=== PATIENT | female | born 1930 | race Caucasian/White ===

== ENCOUNTER 2016-05-23 16:55 | Emergency (ER) | payer OTHER ==
[~2016-05-23] VITALS: Ht 162.6 cm; Wt 55.7 kg
[~2016-05-23 16:55] MED LIST: BENZ100C84 PO; CALCTAB5 PO; CHOL100010 PO; DULO60CA44 PO; FLNIN NAE; MECL25TA2 PO; OMEP40CA PO
[2016-05-23 17:00] VITALS: TEMP 36.8; Ht 162.6 cm; Wt 55.7 kg
[2016-05-23] MEDS ORDERED: OXYCODONE/ACETAMINOPHEN 5-325 TAB PO STA (17:10)
--- NOTE | 2016-05-23 17:30 | EMERGENCY ROOM VISIT NOTE ---
History First contact with patient: 17:06 Chief Complaint: RIB PAIN Stated Complaint: PAIN IN SIDE History of Present Illness The patient is a 85 year old female who presents to the Emergency Room with complaints of pain in her right side. The patient reports that she was taking decorations off of a window earlier today and leaned over a washing machine when she felt a crunch in her right side and developed pain. She rates her discomfort a 10/10. She states the pain is worse with movement. She denies any previous injury to these ribs. She denies any chest pain or difficulty breathing. The patient has not taken any medications for the pain. She denies any abdominal pain, nausea or vomiting. Review of Systems A complete 10-point Review of Systems was discussed with the patient, with pertinent positives and negatives listed in the History of Present Illness. All remaining Review of Systems questions can be considered negative unless otherwise specified. Past Medical/Surgical History Medical Problems: (1) Benign essential hypertension (2) Gastroesophageal reflux disease (3) Hyperlipidemia (4) Hypothyroidism (5) Malignant hypertension (6) Migraine (7) non stemi (8) Polymyalgia rheumatica Surgical Problems: (1) S/P CABG x 3 Family History Diabetes mellitus Social History Smoking Status: Never Smoker Alcohol Use: none Marital Status: Housing Status: unknown Occupation Status: retired Current/Historical Medications Scheduled Aspirin (Aspirin Ec), 81 MG PO DAILY Calcium (Caltrate), 600 MG PO DAILY Cholecalciferol (Vitamin D), 1,000 INTER.UNIT PO DAILY Duloxetine Hcl (Cymbalta), 60 MG PO DAILY Fluticasone Prop/Salmeterol (Advair Diskus 250/50 60 Dose), 1 PUFF INH BID Fluticasone Propionate (Flonase Nasal Sutter), 2 SPRAYS RONNY DAILY Metoprolol Tartrate (Lopressor) (Lopressor), 12.5 MG PO BID Omeprazole (Prilosec), 40 MG PO DAILY Simvastatin (Zocor), 20 MG PO QPM Scheduled PRN Acetaminophen (Tylenol), 325 MG PO Q4H PRN for Headache or Pain Benzonatate (Tessalon Perles), 100 MG PO Q8 PRN for Cough Hjtraoyovn-Smhfuejjekgba-Aazgg (Fioricet), 1 TABLET PO DAILY PRN for PRN Meclizine Hcl (Antivert), 25 MG PO TID PRN for Dizziness or Vertigo Nitroglycerin (Nitrostat), 0.4 MG UT UD PRN for Chest Pain Oxycodone Ir (Roxicodone Ir), 5 MG PO Q4H PRN for Pain Oxycodone Ir (Roxicodone Ir), 1-2 TAB PO Q4H PRN for Pain Tolterodine Tartrate (Detrol La), 4 MG PO DAILY PRN for PRN Allergies Coded Allergies: Clarithromycin (Verified Allergy, Unknown, 08/15/14) Doxycycline (Verified Allergy, Unknown, UNKNOWN, 08/15/14) Macrolides (Verified Allergy, Unknown, 08/15/14) Morphine (Verified Allergy, Unknown, UNKNOWN, 08/15/14) Tolerates oxycodone Nabumetone (Verified Allergy, Unknown, 08/15/14) Propoxyphene (Verified Allergy, Unknown, 08/15/14) Quinolones (Verified Allergy, Unknown, LEVAQUIN, 08/15/14) Tetracycline (Verified Allergy, Unknown, UNKNOWN, 08/15/14) Tetracyclines (Verified Allergy, Unknown, 08/15/14) Ibandronic Acid (Verified Adverse Reaction, Intermediate, BONE PAIN, ) Physical Exam Vital Signs Date Time Temp Pulse Resp B/P Pulse Ox O2 Delivery O2 Flow Rate FiO2 05/23/16 18:38 70 12 156/80 97 Room Air 05/23/16 17:00 36.8 78 18 164/70 92 Room Air Physical Exam VITALS: Vitals are noted on the nurse's note and reviewed by myself. Vital signs stable. GENERAL: This is an 85-year-old female, in no acute distress, nondiaphoretic, well-developed well-nourished. SKIN: Capillary reflex less than 2 seconds. HEENT: Normocephalic. PERRLA. EOMI. Nares patent. Mucous membranes moist. Neck is supple without nuchal rigidity. HEART: Regular rate and rhythm without murmurs gallops or rubs. LUNGS: Clear to auscultation bilaterally without wheezes, rales or rhonchi. No retractions or accessory muscle use. ABDOMEN: Soft, nontender. MUSCULOSKELETAL: There is tenderness to palpation over the right lateral lower ribs. No fracture crepitus present. NEURO: Patient was alert and oriented to person place and time. Medical Decision & Procedures ER Provider Diagnostic Interpretation: RIGHT RIBS UNILATERAL WITH PA CHEST FINDINGS: There are postsurgical changes of midline sternotomy. There is a retrocardiac mass containing air consistent with a hiatal hernia. There is a persistent triangular opacity at the level of the right lower heart border. There is no pneumothorax. No right-sided rib fractures are visualized. There is calcific tendinitis involving the right shoulder. IMPRESSION: 1. No evidence of pneumothorax. No right-sided rib fractures identified. 2. Calcific tendinitis involving the right shoulder Medications Administered Medications (Trade) Dose Ordered Sig/Karen Route Start Time Stop Time Status Last Admin Dose Admin Oxycodone/ Acetaminophen (Percocet 5-325MG Tab) 1 tab NOW STAT PO 05/23/16 17:10 05/23/16 17:11 DC 05/23/16 17:45 1 TAB Medical Decision Differential diagnosis includes rib fracture, rib contusion, muscular strain, pneumothorax, among others. The patient was evaluated as above. She was given 1 tablet of Percocet for pain. X-ray of the chest with right rib detail showed no evidence of rib fracture or pneumothorax. The patient did have an injury consistent with a muscle strain. She will be given a short course of pain medication at home. The patient has received prescriptions for Percocet in the past and states that she does well with it. She was given an incentive spirometer and conservative measures were discussed. She will follow-up with her primary care provider as needed. She and her family verbalized understanding of my assessment and treatment plan and were discharged home in good condition. The patient was independently evaluated by Dr. Nicholas, ED attending physician, who agreed with my assessment and treatment plan. Impression Primary Impression: Rib pain on right side Departure Information Dispostion Home / Self-Care Condition GOOD Prescriptions Oxycodone Ir (Roxicodone Ir) 5 Mg Tab 1-2 TAB PO Q4H Y for Pain, #15 TAB For Initial Treatment Prov: Mago Mcnair .ESVIN 05/23/16 Referrals Bubba Simmons M.D. (PCP) Patient Instructions A Signature Page, My [facility] Additional Instructions You have been treated in the Emergency Department for Rib injury. You have received pain medicine in the emergency department which impairs your ability to operate a vehicle. It is illegal for you to drive after receiving these medicines. You have been prescribed OxyIR to be used for pain control. This is a narcotic medication. You cannot drive or consume alcohol while on this medicine. This medicine should only be used for pain that cannot be controlled with over-the- counter pain medicines. For pain control, you can use the following rxqg-uqa-hlidzaz medicines (if >12 yo): - Regular strength (325mg/tab) Tylenol (acetaminophen) 2 tabs every 4-6 hours as needed. Do not exceed 12 tablets in a 24 hour period. Avoid taking more than 4 grams (4000 mg) of Tylenol per day. This includes any other sources of acetaminophen you may take on a regular basis. - Regular strength (200 mg/tab) Advil (ibuprofen) 1-2 tabs every 4-6 hours as needed. Do not exceed a dose of 3200 mg per day. If this is an acute injury, ice can be applied to the area of pain for the first 3 days to help decrease pain and inflammation. After the first 3 days, a heating pad can be used over the area for continued soothing relief. To minimize your discomfort, you can hug a pillow while coughing or sneezing. Use the incentive spirometer as directed. You should schedule a follow-up appointment in 2-3 days with your Primary Care Provider for further evaluation and treatment of your back pain. Return to the Emergency Department if your current symptoms worsen despite treatment course outlined above, or if you develop any of the following symptoms : intractable pain despite aforementioned treatment course, development of a wet cough, bloody cough, fever, chills, or increased shortness of breath.
--- NOTE | 2016-05-23 17:49 | DIAGNOSTIC IMAGING REPORT ---
RIGHT RIBS UNILATERAL WITH PA CHEST CLINICAL HISTORY: Right rib pain status post trauma COMPARISON STUDY: Chest x-ray dated 11/20/2013 FINDINGS: There are postsurgical changes of midline sternotomy. There is a retrocardiac mass containing air consistent with a hiatal hernia. There is a persistent triangular opacity at the level of the right lower heart border. There is no pneumothorax. No right-sided rib fractures are visualized. There is calcific tendinitis involving the right shoulder. IMPRESSION: 1. No evidence of pneumothorax. No right-sided rib fractures identified. 2. Calcific tendinitis involving the right shoulder Electronically signed by: Joseph Mclean M.D. 05/23/2016 5:47 PM Dictated Date/Time: 05/23/2016 5:45 PM
--- NOTE | 2016-05-23 18:23 | EMERGENCY ROOM VISIT NOTE ---
ED Visit Note First contact with patient: 17:06 I did evaluate and examine this patient myself. I did guide management for the patient. I agree with the PA's assessment as discussed. Please see the PAs dictation for further details. The patient suffered a mechanical fall. I did independently review the x-rays. There is no evidence of pneumothorax or rib fracture.
[2016-05-23 18:38] VITALS: BP 156/80; PULSE 70; O2SAT 97
[2016-05-23] MEDS ORDERED: OXYC1TAB3 PO (18:41)
[2016-12-02] MEDS ORDERED: METO25TA56 PO (12:21)
[2016-12-02] MEDS ORDERED: SIMV20TA2 PO (12:21)
[2016-12-02] MEDS ORDERED: NTRGSL/4 UT (15:22)
[2016-12-02] MEDS ORDERED: BUTA1CAP17 PO (16:17)
[2016-12-02] MEDS ORDERED: OXYC1TAB3 PO (16:17)
[2016-12-02] MEDS ORDERED: ACET-1311 PO (17:22)
== END 2016-05-23 18:55 | disposition home or self-care (01) ==
LOC: C.EDB 16:57 → C.EDD 18:55
DX: R07.81 Pleurodynia (principal); K21.9 Gastro-esophageal reflux disease without esophagitis; E03.9 Hypothyroidism, unspecified; M75.31 Calcific tendinitis of right shoulder; E78.5 Hyperlipidemia, unspecified; Z95.1 Presence of aortocoronary bypass graft; I10 Essential (primary) hypertension; Z79.82 Long term (current) use of aspirin

== ENCOUNTER → 2016-07-24 | Outpatient (CLI) | payer OTHER ==
[~2016-07-24] MED LIST changes: +ACET-1311 PO; +ADVIN25/60 INH; +ASPI81TA28 PO; +BUTA1CAP17 PO; +CALC-393 PO; +CHOL100027 PO; +DOCU-94 PO; +FLUT0.15 NAE; +MECL1TAB42 PO; +METO25TA56 PO; +NTRGSL/4 UT; +OMEP40CA41 PO; +OXYC-57 PO; +OXYC1TAB3 PO; +SIMV20TA2 PO; +TOLT4CAP PO
[2016-07-24 10:11] LABS: HEMATOCRIT 34.5 % (37-47); MEAN CORPUSCULAR HEMOGLOBIN 30.1 pg (25-34); MEAN CORPUSCULAR HGB CONC 34.2 g/dl (32-36); MEAN PLATELET VOLUME 9.6 fL (7.4-10.4); PLATELET COUNT 301 K/uL (130-400); RED BLOOD COUNT 3.92 M/uL (4.2-5.4); WHITE BLOOD COUNT 7.96 K/uL (4.8-10.8)
[2016-07-24 11:17] LABS: BLOOD UREA NITROGEN 23 mg/dl (7-18); GLUCOSE 93 mg/dl (70-99)
[2016-07-24 11:18] LABS: ALKALINE PHOSPHATASE 86 U/L (45-117); ALT/SGPT 16 U/L (12-78); AMYLASE 34 U/L (25-115); AST/SGOT 15 U/L (15-37); BUN/CREATININE RATIO 16.1 (10-20); CALCIUM 9.3 mg/dl (8.5-10.1); CARBON DIOXIDE 25 mmol/L (21-32); CHLORIDE 107 mmol/L (98-107); POTASSIUM 4.1 mmol/L (3.5-5.1); SODIUM 141 mmol/L (136-145)
--- NOTE | 2016-07-24 11:58 | DIAGNOSTIC IMAGING REPORT ---
GI W/AIR SMALL BOWEL ROUTINE CLINICAL HISTORY: R11.0 [id number]. Pain. COMPARISON STUDY: None FLUOROSCOPY TIME: 4 minutes. FINDINGS: Patient initiated swallow function well. Mild esophageal irritability. Fixed lateral hernia. Mild gastroesophageal reflux. Size and configuration stomach are normal. Duodenal bulb fills well and is negative for ulceration. Duodenal sweep is unremarkable. Mucosal pattern and transit time throughout small bowel are unremarkable. Spot films the terminal ileum are within normal limits. IMPRESSION: 1. Mild esophageal irritability. 2. Hiatal hernia with mild gastroesophageal reflux. 3. Otherwise negative study Electronically signed by: Mikey Gant M.D. 07/24/2016 11:57 AM Dictated Date/Time: 07/24/2016 11:53 AM
== END | disposition home or self-care (01) ==
LOC: C.RAD 09:32
PROVIDERS: ATTEND Internal Medicine
DX: R11.0 Nausea (principal); D64.9 Anemia, unspecified; K44.9 Diaphragmatic hernia without obstruction or gangrene; K21.9 Gastro-esophageal reflux disease without esophagitis

== ENCOUNTER → 2016-09-02 | Outpatient (CLI) | payer OTHER ==
--- NOTE | 2016-09-02 09:35 | DIAGNOSTIC IMAGING REPORT ---
ABDOMINAL ULTRASOUND, RIGHT UPPER QUADRANT HISTORY: R11.0 Nausea. COMPARISON: Abdomen and pelvis CT 05/12/2013. FINDINGS: Pancreas: The visualized pancreas demonstrates a normal echotexture. Liver: Unremarkable. Gallbladder: No gallbladder wall thickening. No gallstones. Small amount of sludge. Negative sonographic Gunn's sign. CBD: 6 mm. Right kidney: No hydronephrosis. IMPRESSION: Small amount of gallbladder sludge. No gallstones or gallbladder wall thickening. Electronically signed by: Omid Mcleod M.D. 09/02/2016 9:33 AM Dictated Date/Time: 09/02/2016 9:31 AM
== END | disposition home or self-care (01) ==
LOC: C.ULTR 08:50
PROVIDERS: ATTEND Physician Assistant
DX: R11.0 Nausea (principal)

== ENCOUNTER → 2016-09-04 | Outpatient (CLI) | payer OTHER ==
--- NOTE | 2016-09-04 13:44 | DIAGNOSTIC IMAGING REPORT ---
NUCLEAR GASTRIC EMPTYING STUDY: CLINICAL HISTORY: Nausea COMPARISON STUDY: 09/02/2012 TECHNIQUE: Following the oral administration of 1.1 mCi of technetium 99m sulfur colloid in egg sandwich and 8 ounces of water, static abdominal images are performed anteriorly and posteriorly at 0 minutes, 1 hour, 2 hours, and 4 hour time intervals. Gastric emptying was calculated utilizing the geometric mean method. FINDINGS: There is approximately 62 % gastric activity remaining at the 1 hour time interval, 24 % at the 2 hour time interval (normal is less than 60%), and 2 % remaining at the 4 hour time interval (normal is less than 10%). These findings are consistent with a normal study. IMPRESSION: The previously abnormal study has reverted to normal. Electronically signed by: Joseph Mclean M.D. 09/04/2016 1:42 PM Dictated Date/Time: 09/04/2016 1:41 PM
== END | disposition home or self-care (01) ==
LOC: C.NUCL 08:30
PROVIDERS: ATTEND Physician Assistant
DX: R11.0 Nausea (principal)

== ENCOUNTER → 2016-09-13 | Outpatient (CLI) | payer OTHER ==
[~2016-09-13] MED LIST changes: +SINCALIDE INJ 1.1 MCG in SODIUM CHLORIDE 0.9% 100ML 100 ML IV ONE
--- NOTE | 2016-09-13 15:14 | DIAGNOSTIC IMAGING REPORT ---
NUCLEAR MEDICINE HEPATOBILIARY SCAN WITH EJECTION FRACTION HISTORY: R93.8 Abnormal [id number] Sludge in gallbladder COMPARISON: Abdominal ultrasound 09/02/2016. TECHNIQUE: Immediately following the intravenous administration of 5.5 mCi Tc-99m Choletec, dynamic anterior abdominal imaging pre/post 1.1 mcg of Kinevac was performed. FINDINGS: Uniform hepatic tracer accumulation is shown. Prompt intrahepatic biliary excretion is seen. The gallbladder and common bile duct were visualized by 25 minutes. The small bowel is slightly delayed and visualized at 72 minutes. The gall bladder ejection fraction following administration of Kinevac was 76% (normal >35%). IMPRESSION: 1. No evidence for cystic duct obstruction. 2. Gallbladder ejection fraction calculated to be 76 %. Electronically signed by: Omid Mcleod M.D. 09/13/2016 3:12 PM Dictated Date/Time: 09/13/2016 3:11 PM
== END ==
LOC: C.NUCL 12:29
PROVIDERS: ATTEND Registered Nurse
DX: K82.8 Other specified diseases of gallbladder (principal); R93.8 Abnormal findings on diagnostic imaging of other specified body structures

== ENCOUNTER → 2016-11-12 | Outpatient (CLI) | payer OTHER ==
[~2016-11-12] MED LIST changes: -CALC-393 PO; -CHOL100027 PO; -DOCU-94 PO; -FLUT0.15 NAE; -MECL1TAB42 PO; -OMEP40CA41 PO; -OXYC-57 PO; -SINCALIDE INJ 1.1 MCG in SODIUM CHLORIDE 0.9% 100ML 100 ML IV ONE
--- NOTE | 2016-11-12 14:29 | DIAGNOSTIC IMAGING REPORT ---
RIGHT SHOULDER MIN 2 VIEWS CLINICAL HISTORY: Right shoulder pain. COMPARISON: None FINDINGS: Alignment of the right shoulder is anatomic. There is no acute fracture. There is mild arthritis of the right acromioclavicular and glenohumeral joints. Median sternotomy wires are noted. IMPRESSION: 1. No acute fracture. 2. Mild arthritis of the right acromioclavicular and glenohumeral joints. Electronically signed by: Jacinto Sykes M.D. 11/12/2016 2:27 PM Dictated Date/Time: 11/12/2016 2:25 PM
== END | disposition home or self-care (01) ==
LOC: C.RDSM 14:00
PROVIDERS: ATTEND Family Medicine
DX: M25.511 Pain in right shoulder (principal)

== ENCOUNTER → 2016-11-27 | Outpatient (CLI) | payer OTHER ==
[~2016-11-27] MED LIST changes: +CALC-393 PO; +CHOL100027 PO; +DOCU-94 PO; +FLUT0.15 NAE; +MECL1TAB42 PO; +OMEP40CA41 PO; +OXYC-57 PO
--- NOTE | 2016-11-27 17:40 | DIAGNOSTIC IMAGING REPORT ---
CERVICAL SPINE 4 OR 5 VIEWS CLINICAL HISTORY: 86 years-old Female presenting with NECK PAIN RADIATING INTO RIGHT ARM. TECHNIQUE: Frontal, lateral, bilateral oblique, and open-mouth odontoid views of the cervical spine were obtained. COMPARISON: None. FINDINGS: Lordotic curvature of the upper cervical spine from C2 to C4. 4 mm of retrolisthesis of C2 on C3 with mild apparent spinal canal narrowing. 5 mm of anterolisthesis of C4 on C5 with resultant mild kyphosis of C5-T1. Mild vertebral body height loss of C5 and C6. Multilevel degenerative changes greatest at C5-C7, where there is intervertebral disc height loss and osteophytosis. Significant osseous neural foraminal narrowing in the upper cervical spine greater on the right from C2-3 to C4-5. Normal predental interval. No evidence of acute fracture. The lateral masses of C1 are not well visualized. No prevertebral soft tissue swelling. Median sternotomy wires and other surgical material project over the upper thorax. IMPRESSION: 1. Mild apparent osseous spinal canal narrowing at C2 secondary to retrolisthesis of C2 on C3. 2. Right greater than left upper cervical osseous neural foraminal narrowing. 3. Additional multilevel degenerative changes as above. Electronically signed by: Dev Robles M.D. 11/27/2016 5:38 PM Dictated Date/Time: 11/27/2016 5:32 PM
== END | disposition home or self-care (01) ==
LOC: C.RDSM 13:29
PROVIDERS: ATTEND Family Medicine
DX: M79.601 Pain in right arm (principal); M54.2 Cervicalgia

== ENCOUNTER 2016-12-02 18:14 | Emergency (ER) | payer OTHER ==
[~2016-12-02] VITALS: Ht 162.6 cm; Wt 56.0 kg
[~2016-12-02 18:14] MED LIST changes: -ADVIN25/60 INH; -ASPI81TA28 PO; -CALC-393 PO; -CHOL100027 PO; -DOCU-94 PO; -FLUT0.15 NAE; -MECL1TAB42 PO; -OMEP40CA41 PO; -OXYC-57 PO; -TOLT4CAP PO
[2016-12-02 18:17] VITALS: TEMP 36.8; Ht 162.6 cm; Wt 56.0 kg
[2016-12-02] MEDS ORDERED: ADVIN25/60 INH (18:25)
[2016-12-02] MEDS ORDERED: ASPI81TA28 PO (18:25)
[2016-12-02] MEDS ORDERED: TOLT4CAP PO (18:38)
[2016-12-02] MEDS ORDERED: OXYCODONE/ACETAMINOPHEN 5-325 TAB PO ONE (18:45)
[2016-12-02] MEDS ORDERED: DOCUSATE SODIUM 100 MG CAP PO ONE (18:45)
[2016-12-02] MEDS ORDERED: CALC-393 PO (19:13)
[2016-12-02] MEDS ORDERED: FLUT0.15 NAE (19:13)
[2016-12-02] MEDS ORDERED: MECL1TAB42 PO (19:13)
[2016-12-02] MEDS ORDERED: OMEP40CA41 PO (19:13)
[2016-12-02] MEDS ORDERED: CHOL100027 PO (19:13)
[2016-12-02] MEDS ORDERED: DOCU-94 PO (19:51)
[2016-12-02] MEDS ORDERED: OXYC-57 PO (19:51)
--- NOTE | 2016-12-02 19:52 | EMERGENCY ROOM VISIT NOTE ---
History Report prepared by Lili: Kristi Perea Under the Supervision of: Dr. Varghese Gallagher M.D. First contact with patient: 18:25 Chief Complaint: SHOULDER PAIN Stated Complaint: PAIN IN R SHOULDER AND GOES DOWN History of Present Illness The patient is a 86 year old female who presents to the Emergency Room with complaints of right shoulder pain starting about a month ago and worsening yesterday. She has worsening pain with movement. The patient has been taking Oxycodone with some relief. She has been applying ice without relief. She has been receiving physical therapy without relief. She had an x-ray which showed arthritis, spurs, and spinal stenosis. She is scheduled to have a CT scan of brain and MRI scheduled for December 05. She was referred to the Emergency Room for concerns about the severity of her pain. She denies any recent falls or history of shoulder issues. The patient denies chest pain, shortness of breath, or any other complaints. Source of History: patient Onset: about a month ago Position: shoulder (right) Timing: worsening Modifying Factors (Worsening): movement Modifying Factors (Relieving): ice (without relief), other (Oxycodone with some relief; phyisical therapy without relief) Associated Symptoms: No chest pain, No SOB Review of Systems All systems have been listed, reviewed, and are negative other than those previously mentioned. Please see Additional Medical History Sheet. Past Medical & Surgical Medical Problems: (1) Benign essential hypertension (2) Gastroesophageal reflux disease (3) Hyperlipidemia (4) Hypothyroidism (5) Malignant hypertension (6) Migraine (7) non stemi (8) Polymyalgia rheumatica Surgical Problems: (1) S/P CABG x 3 Family History Diabetes mellitus Social History Smoking Status: Never Smoker Alcohol Use: none Marital Status: Housing Status: unknown Occupation Status: retired Current/Historical Medications Scheduled Aspirin (Aspirin Ec), 81 MG PO DAILY Calcium Carbonate (Calcium), 600 MG PO DAILY Cholecalciferol (Vitamin D 1000 Unit), 1,000 INTER.UNIT PO DAILY Docusate Sodium (Colace), 100 MG PO BID Fluticasone Prop/Salmeterol (Advair Diskus 250/50 60 Dose), 1 PUFF INH BID Fluticasone Propionate (Nasal) (Flonase Allergy Relief), 2 SPRAYS RONNY DAILY Metoprolol Tartrate (Lopressor) (Lopressor), 12.5 MG PO BID Omeprazole (Prilosec), 40 MG PO DAILY Simvastatin (Zocor), 20 MG PO QPM Scheduled PRN Acetaminophen (Tylenol), 325 MG PO Q4H PRN for Headache or Pain Hbtgmcutmt-Whrguyclzlnei-Lxnws (Fioricet), 1 TABLET PO DAILY PRN for PRN Duloxetine Hcl (Cymbalta), 60 MG PO DAILY PRN for DEPRESSION Meclizine Hcl (Meclizine Hcl), 1 TAB PO TID PRN for Dizziness or Vertigo Nitroglycerin (Nitrostat), 0.4 MG UT UD PRN for Chest Pain Oxycodone Ir (Roxicodone Ir), 5 MG PO Q4H PRN for Pain Oxycodone/Acetaminophen 5MG/325MG (Percocet 5MG/325MG), 1 TABLETS PO Q4H PRN for Pain Tolterodine Tartrate (Detrol La), 4 MG PO DAILY PRN for PRN Allergies Coded Allergies: Clarithromycin (Verified Allergy, Unknown, 08/15/14) Doxycycline (Verified Allergy, Unknown, UNKNOWN, 08/15/14) Macrolides (Verified Allergy, Unknown, 08/15/14) Morphine (Verified Allergy, Unknown, UNKNOWN, 08/15/14) Tolerates oxycodone Nabumetone (Verified Allergy, Unknown, 08/15/14) Propoxyphene (Verified Allergy, Unknown, 08/15/14) Quinolones (Verified Allergy, Unknown, LEVAQUIN, 08/15/14) Tetracycline (Verified Allergy, Unknown, UNKNOWN, 08/15/14) Tetracyclines (Verified Allergy, Unknown, 08/15/14) Ibandronic Acid (Verified Adverse Reaction, Intermediate, BONE PAIN, ) Physical Exam Vital Signs Date Time Temp Pulse Resp B/P (MAP) Pulse Ox O2 Delivery O2 Flow Rate FiO2 12/02/16 18:17 36.8 82 22 123/56 96 Room Air Physical Exam GENERAL: Patient awake, alert, oriented x 3. Patient follows commands. Patient does not appear toxic. Patient is adequately hydrated and well- nourished. SKIN: No erythema, pallor, cyanosis or rash HEENT: Normal head, pupils equal, reactive to light and accommodation. LUNGS: Clear to auscultation. No wheezes, no rales, no rhonchi. HEART: Grade 2/6 systolic murmur. ABDOMEN: Soft, nontender. EXTREMITIES: No signs of trauma. No pedal or pretibial edema. No calf or thigh tenderness. Some limited range of motion with abduction. Normal flexion and extension. NEUROLOGIC: Cranial nerves II-XII within normal limits. No gross motor sensory function deficits. Medical Decision & Procedures Medications Administered Medications (Trade) Dose Ordered Sig/Karen Route Start Time Stop Time Status Last Admin Dose Admin Oxycodone/ Acetaminophen (Percocet 5-325mg Tab) 1 tab NOW ONCE PO 12/02/16 18:45 12/02/16 18:46 DC 12/02/16 18:54 1 TAB Docusate Sodium (coLACE CAP) 100 mg NOW ONCE PO 12/02/16 18:45 12/02/16 18:46 DC 12/02/16 18:54 100 MG ED Course 1824: Past medical records reviewed. The patient was evaluated in room C10. A complete history and physical examination was performed. 1844: Colace Cap 100 mg PO, Oxycodone/Acetaminophen 1 tab PO 1943: Upon reevaluation, the patient appeared to have improvement of her symptoms. I discussed today's findings with her. She verbalized agreement of the treatment plan. She was discharged home. Medical Decision Medication Reconciliation: I attest that I have personally reviewed the patient' s current medication list. Blood pressure Screening: Patient was found to have normal blood pressure on screening and does not require follow up. Differential diagnosis includes but is not limited to bursitis, arthritis, rotator cuff injury. The patient is here with right shoulder pain for the past couple of months but worse over the past 2 days. The patient denies any recent injury. The patient does have some limited abduction. The patient has a prior history of arthritis. Pain appears to be isolated to her shoulder. I do not believe this is related to any underlying medical problem. The patient is scheduled to have an MRI of her shoulder this week. She was given 1 Percocet here which helped considerably. The patient does not tolerate NSAIDs. The patient continued taking Percocet at home as needed. [place] Drug Monitoring Program Search Results: patient reviewed within database, no issues identified Impression Primary Impression: Arthritis of right shoulder region Scribe Attestation The scribe's documentation has been prepared under my direction and personally reviewed by me in its entirety. I confirm that the note above accurately reflects all work, treatment, procedures, and medical decision making performed by me. Departure Information Dispostion Home / Self-Care Prescriptions Docusate Sodium (COLACE) 100 Mg Cap 100 MG PO BID, #30 CAP Prov: Varghese Gallagher M.D. 12/02/16 Oxycodone/Acetaminophen 5MG/325MG (PERCOCET 5MG/325MG) Tab 1 TABLETS PO Q4H Y for Pain, #20 TAB Prov: Varghese Gallagher M.D. 12/02/16 Referrals Bubba Simmons M.D. (PCP) Forms HOME CARE DOCUMENTATION FORM, IMPORTANT VISIT INFORMATION Patient Instructions My [facility] Additional Instructions 1 Percocet every 4 hours as needed for pain. 1 Colace twice a day as long as you're taking oxycodone/Percocet. Follow-up with the MRI appointment . Follow-up with your family physician.
[2016-12-02 20:42] VITALS: BP 119/61; PULSE 76; O2SAT 96
--- NOTE | 2016-12-03 13:26 | Pharmacy Progress Note ---
ED Pharmacist Progress Note Date of Service: Dec 03, 2016. Patient's family called stating Rx for Colace was at [facility] however the Percocet Rx was not there. I reviewed the Rx transmission history and discovered the Rx for Percocet had been printed. The Rx was still in the ED and I had Dr Gallagher sign it. I then notified the patient's family the Rx would be available for someone to pick-up at the ED entrance. The Rx was placed in an envelope in the nursing command station with the patient's name on the outside.
== END 2016-12-02 20:43 | disposition home or self-care (01) ==
LOC: C.EDB 18:16 → C.EDC 20:43
DX: M19.011 Primary osteoarthritis, right shoulder (principal); I10 Essential (primary) hypertension; K21.9 Gastro-esophageal reflux disease without esophagitis; E78.5 Hyperlipidemia, unspecified; I25.2 Old myocardial infarction; Z95.1 Presence of aortocoronary bypass graft; Z79.82 Long term (current) use of aspirin; Z83.3 Family history of diabetes mellitus; Z79.899 Other long term (current) drug therapy

== ENCOUNTER → 2016-12-05 | Outpatient (CLI) | payer OTHER ==
[~2016-12-05] MED LIST changes: +ADVIN25/60 INH; +ASPI81TA28 PO; -BENZ100C84 PO; +CALC-393 PO; -CALCTAB5 PO; -CHOL100010 PO; +CHOL100027 PO; +DOCU-94 PO; -FLNIN NAE; +FLUT0.15 NAE; +MECL1TAB42 PO; -MECL25TA2 PO; -OMEP40CA PO; +OMEP40CA41 PO; +OXYC-57 PO; +TOLT4CAP PO
--- NOTE | 2016-12-05 11:15 | DIAGNOSTIC IMAGING REPORT ---
CT HEAD WITHOUT CONTRAST (CT) CLINICAL HISTORY: R ARM WEAKNESS COMPARISON STUDY: 02/22/2014 TECHNIQUE: Axial CT of the brain is performed from the vertex to the skull base. IV contrast was not administered for this examination. A dose lowering technique was utilized adhering to the principles of ALARA. CT DOSE: 788.63 mGycm FINDINGS: No intra or extra-axial mass lesions are visualized. There is no CT evidence of acute cortical infarction. There is no evidence of midline shift. There is no acute hemorrhage. No calvarial fractures are visualized. There are moderate white matter hypodensities likely on a small vessel basis. There is no evidence of pathologic ventricular dilatation. There is chronic mucosal thickening with mild maxilla sinus wall hypertrophy. There is no evidence of acute sinusitis. IMPRESSION: No acute intracranial findings Electronically signed by: Joseph Mclean M.D. 12/05/2016 11:13 AM Dictated Date/Time: 12/05/2016 11:13 AM
--- NOTE | 2016-12-05 12:00 | DIAGNOSTIC IMAGING REPORT ---
CERVICAL WITHOUT CONTRAST CLINICAL HISTORY: 86 years-old Female presenting with R ARM WEAKNESS. TECHNIQUE: Multisequence, multiplanar MR imaging of the cervical spine was performed without the use of intravenous contrast. IV contrast: None. COMPARISON: Plain radiographs of the cervical spine on 11/27/2016. FINDINGS: Extensive multilevel degenerative changes resulting in exaggerated lordosis of C2-C4 and slight kyphosis from C5 to C7. No evidence of retrolisthesis of C2 on C3. Grade 1 anterolisthesis of C4 on C5. Mild vertebral body height loss at C5 and C6. Fluid signal noted within the C3-4 and C5-6 disc spaces without bony edema of the associated endplates. C2-3: Disc osteophyte complex in combination with ligamentum flavum thickening results in near complete effacement of the CSF and apparent impingement of the spinal cord. No significant neural foraminal narrowing. C3-4: Disc osteophyte complex and uncovertebral hypertrophy mildly effaces the ventral thecal sac. No significant neural foraminal narrowing. C4-5: Anterolisthesis of C4 on C5 with small disc osteophyte complex. No significant neural foraminal narrowing. Mild spinal canal stenosis as a result of anterolisthesis, although the dorsal CSF is not effaced. C5-6: Disc osteophyte complex and uncovertebral hypertrophy result in effacement of the ventral thecal sac and mild bilateral neural foraminal narrowing. Spinal cord mildly contoured along the ventral aspect without evidence of impingement. C6-7: Disc osteophyte complex and uncovertebral hypertrophy mildly effaces the ventral thecal sac and lateral recesses. No significant neural foraminal narrowing, although exiting C7 nerve roots may be abutted by the disc osteophyte complex in the lateral recess. C7-T1: Disc osteophyte complex in combination with ligamentum flavum thickening mildly and circumferentially efface the ventral thecal sac. No giselle evidence of spinal cord impingement. No significant neural foraminal narrowing. Craniocervical junction normal. Mild thinning of the cervical spinal cord suggested at C2-3 although no abnormal signal intensity is noted. Paraspinal soft tissues remarkable for asymmetric intramuscular edema and infiltration along the right facet joints extending to the interspinous region from C4-5 to C6-7. The greatest amount of edema is noted at C6-7 with possible bony edema extending into the right C7 pedicle. No fluid within the right C6-7 facet joint. Remaining soft tissues of the neck within normal limits. IMPRESSION: 1. Significant multilevel degenerative change detailed above. Apparent spinal cord impingement at C2-3. Varying degrees of neural foraminal narrowing as above. Possible abutment of the exiting C7 nerve roots secondary to disc osteophyte complex. 2. Asymmetric right-sided paraspinal edema extending from C4-5 to C6-7 with possible bony edema in the right C7 posterior elements. The absence of fluid within the C6-7 right facet joint decreases suspicion for septic arthritis/infection, although the degree of paraspinal inflammatory change is unexpected in the setting of degenerative disease. Correlate clinically to exclude infection. This may represent injury or degenerative change. 3. Fluid signal intensity within the C3-4 and C4-5 disc spaces without adjacent endplate bony edema. This is most likely degenerative in etiology. Electronically signed by: Dev Robles M.D. 12/05/2016 11:59 AM Dictated Date/Time: 12/05/2016 11:43 AM
== END | disposition home or self-care (01) ==
LOC: C.MRI 09:45
PROVIDERS: ATTEND Family Medicine
DX: M79.601 Pain in right arm (principal); R29.898 Other symptoms and signs involving the musculoskeletal system; R20.2 Paresthesia of skin; G95.19 Other vascular myelopathies

== ENCOUNTER → 2016-12-19 | Outpatient (CLI) | payer OTHER ==
[2016-12-19 13:28] LABS: BASO % 0.9 %; BASO ABS # 0.08 K/uL (0-0.2); COMPLETE YES; HEMATOCRIT 34.5 % (37-47); IG% 0.6 %; LYMPH % 28.8 %; LYMPH ABS # 2.58 K/uL (1.2-3.4); MEAN CELL VOLUME 89.1 fL (80-100); MEAN CORPUSCULAR HEMOGLOBIN 28.4 pg (25-34); MEAN CORPUSCULAR HGB CONC 31.9 g/dl (32-36); MEAN PLATELET VOLUME 9.5 fL (7.4-10.4); MONO % 11.6 %; NEUT % 55.1 %; PLATELET COUNT 500 K/uL (130-400); RED BLOOD COUNT 3.87 M/uL (4.2-5.4); WHITE BLOOD COUNT 8.96 K/uL (4.8-10.8)
[2016-12-19 13:46] LABS: BLOOD UREA NITROGEN 22 mg/dl (7-18); CALCIUM 9.1 mg/dl (8.5-10.1); CARBON DIOXIDE 26 mmol/L (21-32); CHLORIDE 108 mmol/L (98-107); GLUCOSE 91 mg/dl (70-99); POTASSIUM 4.4 mmol/L (3.5-5.1); SODIUM 141 mmol/L (136-145)
== END | disposition home or self-care (01) ==
LOC: C.LABBC 10:37
PROVIDERS: ATTEND Internal Medicine Geriatric Medicine
DX: E03.9 Hypothyroidism, unspecified (principal); M35.3 Polymyalgia rheumatica; N18.3 Chronic kidney disease, stage 3 (moderate); M81.0 Age-related osteoporosis without current pathological fracture; D64.9 Anemia, unspecified

== ENCOUNTER → 2017-05-15 | Outpatient (CLI) | payer OTHER ==
--- NOTE | 2017-05-15 13:48 | MAMMOGRAPHY REPORT ---
BILATERAL DIGITAL SCREENING MAMMOGRAM WITH CAD: 05/15/2017 CLINICAL HISTORY: Routine screening. Patient has no complaints. TECHNIQUE: Current study was also evaluated with a Computer Aided Detection (CAD) system. Bilateral CC and MLO views were obtained. COMPARISON: Comparison is made to exams dated: 05/13/2016 mammogram, 05/10/2015 mammogram, 4 mammogram, 05/06/2013 mammogram, 05/03/2011 mammogram, and 05/05/2009 mammogram - [facility]. BREAST COMPOSITION: The tissue of both breasts is heterogeneously dense, which may obscure small mas ses. FINDINGS: No suspicious masses, calcifications, or areas of architectural distortion are noted in ei ther breast. There has been no significant interval change compared to prior exams. Bilateral benign -appearing calcifications are not significantly changed. Asymmetry in the left inferior breast is st able. Nodular asymmetry in the left lateral breast middle depth on the cc view is compatible with a stable intramammary lymph node. IMPRESSION: ACR BI-RADS CATEGORY 2: BENIGN There is no mammographic evidence of malignancy. A 1 year screening mammogram is recommended. The pa tient will receive written notification of the results. Approximately 10% of breast cancers are not detected with mammography. A negative mammographic report should not delay biopsy if a clinically suggestive mass is present. Caitie León M.D. /:05/15/2017 12:25:53 [employer] Operator: Nidia Patel [facility] letter sent: Normal 1/2 BI-RADS Code: ACR BI-RADS Category 2: Benign
== END | disposition home or self-care (01) ==
LOC: C.MAMM 11:05
PROVIDERS: ATTEND Internal Medicine Geriatric Medicine
DX: Z12.31 Encounter for screening mammogram for malignant neoplasm of breast (principal)

== ENCOUNTER → 2017-07-03 | Outpatient (CLI) | payer OTHER ==
[~2017-07-03] MED LIST changes: -DOCU-94 PO; -OXYC-57 PO
[2017-07-03 14:14] LABS: ALBUMIN 3.6 gm/dl (3.4-5.0); ALT/SGPT 14 U/L (12-78); BLOOD UREA NITROGEN 22 mg/dl (7-18); CALCIUM 9.3 mg/dl (8.5-10.1); CARBON DIOXIDE 27 mmol/L (21-32); CHOLESTEROL 163 mg/dl (0-200); CREATININE 1.57 mg/dl (0.60-1.20); GLUCOSE 97 mg/dl (70-99); POTASSIUM 4.2 mmol/L (3.5-5.1); SODIUM 135 mmol/L (136-145)
[2017-07-03 14:24] LABS: ALKALINE PHOSPHATASE 92 U/L (45-117); AST/SGOT 13 U/L (15-37); LDL CHOLESTEROL CALCULATED 87 mg/dl; TOTAL PROTEIN 7.5 gm/dl (6.4-8.2)
[2017-07-03 14:28] LABS: BASO % 0.7 %; BASO ABS # 0.07 K/uL (0-0.2); EOS % 2.8 %; HEMATOCRIT 35.9 % (37-47); IG# 0.03 K/uL (0.00-0.02); LYMPH % 27.4 %; LYMPH ABS # 2.92 K/uL (1.2-3.4); MEAN CORPUSCULAR HEMOGLOBIN 29.4 pg (25-34); MEAN CORPUSCULAR HGB CONC 33.4 g/dl (32-36); MEAN PLATELET VOLUME 9.8 fL (7.4-10.4); MONO ABS # 0.85 K/uL (0.11-0.59); NEUT % 60.8 %; NEUT ABS # 6.48 K/uL (1.4-6.5); PLATELET COUNT 446 K/uL (130-400); RED CELL DISTRIBUTION WIDTH CV 14.5 % (11.5-14.5); RED CELL DISTRIBUTION WIDTH SD 46.6 fL (36.4-46.3); WHITE BLOOD COUNT 10.65 K/uL (4.8-10.8)
== END | disposition home or self-care (01) ==
LOC: C.LABBC 11:29
PROVIDERS: ATTEND Internal Medicine Geriatric Medicine
DX: M35.3 Polymyalgia rheumatica (principal); M19.90 Unspecified osteoarthritis, unspecified site; M81.0 Age-related osteoporosis without current pathological fracture; D64.9 Anemia, unspecified; F32.9 Major depressive disorder, single episode, unspecified; I25.10 Atherosclerotic heart disease of native coronary artery without angina pectoris; N18.3 Chronic kidney disease, stage 3 (moderate); R42 Dizziness and giddiness

== ENCOUNTER → 2017-07-16 | Day surgery (SDC) | payer OTHER ==
[2017-07-11 14:50] VITALS: Ht 157.5 cm; Wt 53.6 kg
[~2017-07-16] VITALS: Ht 157.5 cm; Wt 53.6 kg
[~2017-07-16] MED LIST changes: -ACET-1311 PO; +ACET-1693 PO; +ASPCH81X PO; -ASPI81TA28 PO; +BENZ100C18 PO; -BUTA1CAP17 PO; +CHOL100010 PO; -CHOL100027 PO; +DTRSR4 PO; -FLUT0.15 NAE; +LEVO50TA6 PO; +LIDOCAINE HCL 2% 2 ML VIAL (20MG/ML) ONE; +MIDAZOLAM HCL 1 MG/ML 2ML VIAL ONE; +NITR0.4D6 PO; -NTRGSL/4 UT; +ONDA4TAB46 PO; +ONDANSETRON INJ 2 MG/ML 2 ML VIAL ONE; -OXYC1TAB3 PO; +PROPOFOL IV EMULSION 10 MG/ML 20 ML VIAL IV ONE; +SODIUM CHLORIDE 0.9% 500ML 500 ML IV ONE; -TOLT4CAP PO
--- NOTE | 2017-07-16 09:47 | Endo History and Physical ---
History & Physical Date of Service: Jul 16, 2017. Chief Complaint: GERD Referring Physician: uBbba Simmons History of Present Illness 86 yo CF who presents for EGD secondary to GERD. Past Medical History Osteoporosis, Arthritis, Asthma, High Cholesterol, CABG, Hypertension, Thyroid Disease, Chronic Steroid Use Past Surgical History Hx Cardiac Surgery: Yes (HEART CATH/NO STENTS, CABG X 1) Hx Internal Defibrillator: No Hx Pacemaker: No Hx Abdominal Surgery: Yes (HYSTERECTOMY, , RT INGUINAL HERNIA) Hx of Implantable Prosthesis: No Hx Post-Op Nausea and Vomiting: No Hx Cancer Surgery: No Hx Thoracic Surgery: No Hx Orthopedic: Yes (BACK SURGERY (NO HARDWARE)) Hx Urinary Tract Surgery: Yes (BLADDER SUSPENSION) Family History None Social History Smoking Status: Never Smoker Hx Substance Use: No Hx Alcohol Use: Yes (OCCASIONALLY) Allergies Coded Allergies: Alendronate (Verified Allergy, Unknown, UNKNOWN, 07/11/17) IN MEDICAL RECORD Clarithromycin (Verified Allergy, Unknown, UNKNOWN, 07/11/17) IN MEDICAL RECORD Doxycycline (Verified Allergy, Unknown, UNKNOWN, 07/11/17) IN MEDICAL RECORD Ibandronic Acid (Verified Allergy, Unknown, UNKNOWN, 07/11/17) IN MEDICAL RECORD Levofloxacin (Verified Allergy, Unknown, UNKNOWN, 07/11/17) IN MEDICAL RECORD Nabumetone (Verified Allergy, Unknown, UNKNOWN, 07/11/17) IN MEDICAL RECORD Propoxyphene (Verified Allergy, Unknown, UNKNOWN, 07/11/17) IN MEDICAL RECORD Sulfamethoxazole w/Trimethoprim (Verified Allergy, Unknown, UNKNOWN, ) LISTED ON RECORDS Current Medications Reported Home Medications Medications Dose Route/Sig Max Daily Dose Days Date Category Tylenol (Acetaminophen) 325 Mg Tab 650 Mg PO DIRECTED PRN 07/11/17 Reported Detrol LA (Tolterodine Tartrate) 4 Mg Capcr 1 Cap PO DAILY PRN 07/11/17 Reported Zocor (Simvastatin) 20 Mg Tab 20 Mg PO QPM 07/11/17 Reported Zofran (Ondansetron HCl) 4 Mg Tab 4 Mg PO Q8H PRN 07/11/17 Reported Prilosec (Omeprazole) 40 Mg Cap 40 Mg PO BID PRN 07/11/17 Reported Nitroglycerin 0.4 Mg/Hr Dis 1 Tab PO DIRECTED PRN 07/11/17 Reported Lopressor (Metoprolol Tartrate) 25 Mg Tab 0.5 Tab PO BID 07/11/17 Reported Meclizine Hcl 25 Mg Tab 1 Tab PO TID PRN 10 07/11/17 Reported Levothyroxine Sodium 50 Mcg Tab 1 Tab PO QAM 07/11/17 Reported Cymbalta (Duloxetine Hcl) 60 Mg Cap 60 Mg PO DAILY PRN 07/11/17 Reported Vitamin D (Cholecalciferol) 1,000 Unit Tab 1 Tab PO QAM 07/11/17 Reported Calcium (Calcium Carbonate) 600 Mg Tab 1 Tab PO QAM 07/11/17 Reported Tessalon Perles (Benzonatate) 100 Mg Cap 100 Mg PO DIRECTED PRN 07/11/17 Reported Aspirin Chewable (Aspirin) 81 Mg Chew 81 Mg PO QAM 07/11/17 Reported Vital Signs Weight (Kilograms): 53.64 Height (Feet): 5 Height (Inches): 2 Physical Exam General Appearance: WD/WN, no apparent distress Respiratory/Chest: Auscultation: breath sounds normal Cardiovascular: Heart Auscultation: RRR Abdomen: Bowel Sounds: normal Inspection & Palpation: soft, non-distended, no tenderness, guarding & rebound Assessment and Plan Assessment: 86 yo CF who presents for EGD secondary to GERD. Plan: Proceed with EGD.
--- NOTE | 2017-07-16 10:30 | Discharge Instructions ---
Endoscopy Patient Instructions Date / Procedure(s) Performed Jul 16, 2017. EGD Allergy Information Coded Allergies: Alendronate (Verified Allergy, Unknown, UNKNOWN, 07/16/17) IN MEDICAL RECORD Clarithromycin (Verified Allergy, Unknown, UNKNOWN, 07/16/17) IN MEDICAL RECORD Doxycycline (Verified Allergy, Unknown, UNKNOWN, 07/16/17) IN MEDICAL RECORD Ibandronic Acid (Verified Allergy, Unknown, UNKNOWN, 07/16/17) IN MEDICAL RECORD Levofloxacin (Verified Allergy, Unknown, UNKNOWN, 07/16/17) IN MEDICAL RECORD Nabumetone (Verified Allergy, Unknown, UNKNOWN, 07/16/17) IN MEDICAL RECORD Propoxyphene (Verified Allergy, Unknown, UNKNOWN, 07/16/17) IN MEDICAL RECORD Sulfamethoxazole w/Trimethoprim (Verified Allergy, Unknown, UNKNOWN, ) LISTED ON RECORDS Discharge Date / Findings Jul 16, 2017. Hiatal hernia Medication Instructions OK to resume all medications today as prescribed Reported Home Medications Medications Dose Route/Sig Max Daily Dose Days Date Category Tylenol (Acetaminophen) 325 Mg Tab 650 Mg PO DIRECTED PRN 07/11/17 Reported Detrol LA (Tolterodine Tartrate) 4 Mg Capcr 1 Cap PO DAILY PRN 07/11/17 Reported Zocor (Simvastatin) 20 Mg Tab 20 Mg PO QPM 07/11/17 Reported Zofran (Ondansetron HCl) 4 Mg Tab 4 Mg PO Q8H PRN 07/11/17 Reported Prilosec (Omeprazole) 40 Mg Cap 40 Mg PO BID PRN 07/11/17 Reported Nitroglycerin 0.4 Mg/Hr Dis 1 Tab PO DIRECTED PRN 07/11/17 Reported Lopressor (Metoprolol Tartrate) 25 Mg Tab 0.5 Tab PO BID 07/11/17 Reported Meclizine Hcl 25 Mg Tab 1 Tab PO TID PRN 10 07/11/17 Reported Levothyroxine Sodium 50 Mcg Tab 1 Tab PO QAM 07/11/17 Reported Cymbalta (Duloxetine Hcl) 60 Mg Cap 60 Mg PO DAILY PRN 07/11/17 Reported Vitamin D (Cholecalciferol) 1,000 Unit Tab 1 Tab PO QAM 07/11/17 Reported Calcium (Calcium Carbonate) 600 Mg Tab 1 Tab PO QAM 07/11/17 Reported Tessalon Perles (Benzonatate) 100 Mg Cap 100 Mg PO DIRECTED PRN 07/11/17 Reported Aspirin Chewable (Aspirin) 81 Mg Chew 81 Mg PO QAM 07/11/17 Reported Provider Instructions Activity Restrictions - No exercising or heavy lifting for 24 hours. - Do not drink alcohol the day of the procedure. - Do not drive a car or operate machinery until the day after the procedure. - Do not make any important decisions or sign important papers in 24 hours after the procedure. Following Day: - Return to full activity which may include returning to work/school. Diet Start your diet with liquids and light foods (jello, soup, juice, toast). Then eat your usual diet if not nauseated. Treatment For Common After Affects For mild abdominal pain, bloating, or excessive gas: - Rest - Eat lightly - Lie on right side Follow-Up Information Follow-up with Bubba Simmons as scheduled Anesthesia Information What You Should Know You have had a procedure that required some medicine to reduce anxiety and discomfort. This treatment is called moderate sedation. After receiving the treatment, you may be sleepy, but you will be able to breathe on your own. The effects of the treatment may last for several hours. Follow these instructions along with Activity/Diet recommendations noted above: * Do NOT do anything where dizziness or clumsiness would be dangerous. * Rest quietly at home today, then you can be up and about tomorrow. * Have a responsible person stay with you the rest of today. * You may have had an I.V. today. If so, you may take the dressing off later today. Recommendations Call your doctor if: * Trouble breathing * Continuous vomiting for more than 24 hours * Temperature above 101 degrees * Severe abdominal pain or bloating * Pain not relieved by pain medicine ordered * There is increased drainage or redness from any incision * A large amount of rectal bleeding greater than 2-3 tablespoons. (If you had a polyp/s removed or have hemorrhoids, a small amount of blood - from the rectum is to be expected.) * You have any unanswered questions or concerns. IN THE EVENT OF A SERIOUS EMERGENCY, GO TO THE NEAREST EMERGENCY ROOM Your discharge instructions were prepared by provider Lakhwinder Crespo. Patient Instructions Signature Page Willa Leyva Patient (or Guardian) Signature/Date: I have read and understand the instructions given to me by my caregivers. Caregiver/RN/Doctor Signature/Date: The above-named patient and/or guardian has received patient instructions on this date. + Original Patient Signature Page (only) stays with chart. Please make copy for patient.
--- NOTE | 2017-07-16 10:41 | GI REPORT ---
Procedure Date: 07/16/2017 9:54 AM Procedure: Upper GI endoscopy Indications: Gastro-esophageal reflux disease Medicines: Monitored Anesthesia Care Complications: No immediate complications. Estimated Blood Loss: Estimated blood loss: none. Procedure: Pre-Anesthesia Assessment: - Prior to the procedure, a History and Physical was performed, and patient medications and allergies were reviewed. The patient's tolerance of previous anesthesia was also reviewed. The risks and benefits of the procedure and the sedation options and risks were discussed with the patient. All questions were answered, and informed consent was obtained. Prior Anticoagulants: The patient has taken aspirin, last dose was 1 day prior to procedure. ASA Grade Assessment: III - A patient with severe systemic disease. After reviewing the risks and benefits, the patient was deemed in satisfactory condition to undergo the procedure. After obtaining informed consent, the endoscope was passed under direct vision. Throughout the procedure, the patient's blood pressure, pulse, and oxygen saturations were monitored continuously. The scope was introduced through the mouth, and advanced to the second part of duodenum. The upper GI endoscopy was accomplished without difficulty. The patient tolerated the procedure well. Findings: The esophagus was normal. A small hiatal hernia was present. The examined duodenum was normal. Impression: - Normal esophagus. - Small hiatal hernia. - Normal examined duodenum. - No specimens collected. Recommendation: - Resume previous diet. - Continue present medications. - Return to primary care physician as previously scheduled. Lakhwinder Crespo DO 07/16/2017 10:40:59 AM This report has been signed electronically. Note Initiated On: 07/16/2017 9:54 AM I attest to the content of the Intraoperative Record and orders documented therein, exceptions below
[2017-07-16 11:05] VITALS: BP 132/60; PULSE 62; O2SAT 95
--- NOTE | 2017-07-16 11:26 | Anesthesiology Progress Note ---
Anesthesia Post Op Note Date & Time Jul 16, 2017 at 11:26 Vital Signs Pain Intensity: 0 Vital Signs Past 12 Hours Date Time Temp Pulse Resp B/P (MAP) Pulse Ox O2 Delivery O2 Flow Rate FiO2 07/16/17 11:05 62 18 132/60 (84) 95 Room Air 07/16/17 10:50 64 18 115/60 (78) 96 Room Air 07/16/17 10:35 64 16 99/45 (63) 95 Room Air 07/16/17 09:53 36.4 64 20 150/61 (90) 97 Room Air Notes Mental Status: alert / awake / arousable, participated in evaluation Pt Amnestic to Procedure: Yes Nausea / Vomiting: adequately controlled Pain: adequately controlled Airway Patency, RR, SpO2: stable & adequate BP & HR: stable & adequate Hydration State: stable & adequate Anesthetic Complications: no major complications apparent
== END | disposition home or self-care (01) ==
LOC: C.GI 09:10
PROVIDERS: ATTEND Internal Medicine
DX: K21.9 Gastro-esophageal reflux disease without esophagitis (principal); I12.9 Hypertensive chronic kidney disease with stage 1 through stage 4 chronic kidney disease, or unspecified chronic kidney disease; N18.9 Chronic kidney disease, unspecified; K44.9 Diaphragmatic hernia without obstruction or gangrene; J45.909 Unspecified asthma, uncomplicated; M81.0 Age-related osteoporosis without current pathological fracture; E78.00 Pure hypercholesterolemia, unspecified; Z95.1 Presence of aortocoronary bypass graft; Z90.710 Acquired absence of both cervix and uterus; Z79.52 Long term (current) use of systemic steroids; Z79.82 Long term (current) use of aspirin; Z88.1 Allergy status to other antibiotic agents; Z88.2 Allergy status to sulfonamides

== ENCOUNTER → 2017-08-14 | Outpatient (CLI) | payer OTHER ==
[~2017-08-14] MED LIST changes: -ADVIN25/60 INH; -LIDOCAINE HCL 2% 2 ML VIAL (20MG/ML) ONE; -MIDAZOLAM HCL 1 MG/ML 2ML VIAL ONE; -ONDANSETRON INJ 2 MG/ML 2 ML VIAL ONE; -PROPOFOL IV EMULSION 10 MG/ML 20 ML VIAL IV ONE; -SODIUM CHLORIDE 0.9% 500ML 500 ML IV ONE
== END | disposition home or self-care (01) ==
LOC: C.LABBFT 13:53
PROVIDERS: ATTEND Internal Medicine Rheumatology
DX: S22.000A Wedge compression fracture of unspecified thoracic vertebra, initial encounter for closed fracture (principal); M80.00XA Age-related osteoporosis with current pathological fracture, unspecified site, initial encounter for fracture; X58.XXXA Exposure to other specified factors, initial encounter; N25.81 Secondary hyperparathyroidism of renal origin